=== PATIENT | male | born 1980 | race Caucasian/White ===

== ENCOUNTER 2017-08-21 02:36 | Emergency (ER) | payer BC, OTHER ==
[~2017-08-21] VITALS: Ht 175.3 cm; Wt 91.0 kg
[~2017-08-21 02:36] MED LIST: IBUP800T23 PO; METH500T3 PO
[2017-08-21 02:38] VITALS: BP 169/103; PULSE 68; RESP 16; TEMP 97.6; O2SAT 98
[2017-08-21 02:53] VITALS: BP 161/101; PULSE 71; RESP 20; O2SAT 99
--- NOTE | 2017-08-21 03:10 | PD ---
HPI Chief Complaint: Numbness/Tingling Time Seen by Provider: 02:44 Travel History International Travel<30 days: No Contact w/Intl Traveler<30days: No Traveled to known affect area: No History of Present Illness HPI The patient is a 36 year old male who presents to the [facility] emergency department with a history of reportedly noticing tingling sensations in his legs yesterday morning. He reports that the tingling sensations now involved his arms, face, and upper chest. He reports that he has chronic tingling sensations in the left leg associated with weakness in the left leg from history of sciatica. He initially thought that this may be related to his sciatica and took Naprosyn. The patient denies taking any other new medications. The patient denies any prior history of hypertension. His primary care physician is Dr. Chamberlain. He saw him a few months ago. He reports that he has had an episode where he felt dizzy related to this and also experienced nausea without vomiting. He reports having a sensation of weakness in his arms. He reports that 2 days ago he had diarrhea 3. On review of systems otherwise, the patient denies having any known recent fevers, cough or congestion, neck pain, chest pain, shortness of breath, abdominal pain, vomiting , urinary symptoms, loss of bowel or bladder control, double vision, new weakness in his legs, facial droop, or difficulty with word finding ability. He denies having any rashes, recent tick or insect bites, or exposures. [facility] Past Medical History Narrative Medical The patient's past medical history is significant for acid reflux, sciatica involving the left leg. Diminished Hearing: No Herniated Disk: Yes (S1) Tetanus Vaccination: Unknown Influenza Vaccination: No Past Surgical History Surgical History: No Previous Surgery Social History Alcohol Use: No Tobacco Use: No Substance Use: No Allergies-Medications (Allergen,Severity, Reaction): Coded Allergies: No Known Allergies (Unverified Adverse Reaction, Unknown, 08/21/17) Reported Meds & Prescriptions Reported Meds & Active Scripts Active Ibuprofen 800 Mg Tab 800 Mg PO Q6H PRN Robaxin (Methocarbamol) 500 Mg Tab 500 Mg PO QID PRN Review of Systems Except as stated in HPI: all other systems reviewed are Neg General / Constitutional: No: Fever Eyes: No: Visual changes HENT: Positive: Vertigo, No: Headaches Cardiovascular: No: Chest Pain or Discomfort Respiratory: No: Shortness of Breath Gastrointestinal: Positive: Nausea, Diarrhea, No: Abdominal Pain Genitourinary: No: Dysuria Musculoskeletal: No: Pain Skin: No Rash Neurologic: Positive: Weakness, Paresthesia, No: Focal Abnormalities, Change in Mentation, Slurred Speech, Sensory Disturbance Psychiatric: No: Depression Endocrine: No: Polydipsia Hematologic/Lymphatic: No: Easy Bruising Physical Exam Narrative General: The patient is a well-developed well-nourished male in no acute distress. The patient's blood pressure on arrival was noted to be elevated at 160/100. Head and Neck exam: Head is normocephalic atraumatic. Eyes: EOMI, pupils are equal round and reactive to light. Nose: Midline septum with pink mucous membranes Mouth: Dentition unremarkable. Moist mucus membranes. Posterior oropharynx is not erythematous. No tonsillar hypertrophy. Uvula midline. Airway patent. Neck: No palpable lymphadenopathy. No nuchal rigidity. No thyromegaly. No spinous process tenderness to palpation. No step-off or crepitus. No erythema or ecchymosis. Cardiovascular: Regular rate and rhythm without murmurs, gallops, or rubs. No pulse deficit to the extremities on simultaneous auscultation and palpation of his radial artery. Lungs: Clear to auscultation bilaterally. No wheezes, rhonchi, or rales. Abdomen: Soft, without tenderness to palpation in all 4 quadrants of the abdomen. No guarding, rebound, or rigidity. Normal bowel sounds are audible. No tenderness on palpation of McBurney's point. Extremities: No clubbing, cyanosis, or edema. 2+ pulses in all 4 extremities. No calf tenderness on palpation. Back: No spinous process tenderness to palpation. No step-off or crepitus. No erythema or ecchymosis. No costovertebral angle tenderness to palpation. Neurologic Exam: Cranial nerves 2-12 were intact on exam. Strength is 5/5 in all 4 extremities. The patient on sensory examination has intact sensation over all dermatomes. He reports having tingling sensations in the left leg which she reports is chronic related to sciatica. He reports having a tingling sensation across his upper chest. No other tingling sensations in his face or extremities otherwise at this time. 2+ deep tendon reflexes in bilateral lower extremities. Skin Exam: No rash noted. Intact skin that is warm and dry. Data Data Last Documented VS Vital Signs Date Time Temp Pulse Resp B/P (MAP) Pulse Ox O2 Delivery O2 Flow Rate FiO2 08/21/17 03:26 99.0 72 18 149/92 (111) 99 Room Air Orders Orders Electrocardiogram (08/21/17 02:55) Complete Blood Count With Diff (08/21/17 02:55) Comprehensive Metabolic Panel (08/21/17 02:55) Creatine Kinase (Cpk) (08/21/17 02:55) Ckmb (Isoenzyme) Profile (08/21/17 02:55) Troponin I (08/21/17 02:55) Lipase (08/21/17 02:55) Magnesium (Mg) (08/21/17 02:55) Thyroid Stimulating Hormone (08/21/17 02:55) Chest, Single Ap (08/21/17 02:55) Ct Brain W/O Iv Contrast(Rout) (08/21/17 02:55) Iv Access Insert/Monitor (08/21/17 02:55) Ecg Monitoring (08/21/17 02:55) Oximetry (08/21/17 02:55) Drug Screen, Random Urine (08/21/17 02:55) Alcohol (Ethanol) (08/21/17 02:55) Salicylates (Aspirin) (08/21/17 02:55) Tylenol (Acetaminophen) (08/21/17 02:55) Ct Cerv Spine W/O Contrast (08/21/17 ) Labs Laboratory Tests Test 08/21/17 02:55 08/21/17 03:00 White Blood Count 7.4 TH/MM3 Red Blood Count 5.60 MIL/MM3 Hemoglobin 15.5 GM/DL Hematocrit 44.8 % Mean Corpuscular Volume 80.0 FL Mean Corpuscular Hemoglobin 27.7 PG Mean Corpuscular Hemoglobin Concent 34.6 % Red Cell Distribution Width 13.4 % Platelet Count 216 TH/MM3 Mean Platelet Volume 7.5 FL Neutrophils (%) (Auto) 68.2 % Lymphocytes (%) (Auto) 24.3 % Monocytes (%) (Auto) 5.4 % Eosinophils (%) (Auto) 1.6 % Basophils (%) (Auto) 0.5 % Neutrophils # (Auto) 5.0 TH/MM3 Lymphocytes # (Auto) 1.8 TH/MM3 Monocytes # (Auto) 0.4 TH/MM3 Eosinophils # (Auto) 0.1 TH/MM3 Basophils # (Auto) 0.0 TH/MM3 CBC Comment DIFF FINAL Differential Comment Blood Urea Nitrogen 16 MG/DL Creatinine 1.02 MG/DL Random Glucose 138 MG/DL Total Protein 7.1 GM/DL Albumin 4.0 GM/DL Calcium Level 8.5 MG/DL Magnesium Level 1.9 MG/DL Alkaline Phosphatase 140 U/L Aspartate Amino Transf (AST/SGOT) 24 U/L Alanine Aminotransferase (ALT/SGPT) 37 U/L Total Bilirubin 0.3 MG/DL Sodium Level 143 MEQ/L Potassium Level 3.9 MEQ/L Chloride Level 110 MEQ/L Carbon Dioxide Level 26.0 MEQ/L Anion Gap 7 MEQ/L Estimat Glomerular Filtration Rate 83 ML/MIN Total Creatine Kinase 94 U/L Troponin I LESS THAN 0.02 NG/ML Lipase 183 U/L Thyroid Stimulating Hormone 3rd Gen 2.650 uIU/ML Salicylates Level LESS THAN 1.7 MG/DL Acetaminophen Level LESS THAN 2.0 MCG/ML Ethyl Alcohol Level LESS THAN 3 MG/DL Urine Opiates Screen NEG Urine Barbiturates Screen NEG Urine Amphetamines Screen NEG Urine Benzodiazepines Screen NEG Urine Cocaine Screen NEG Urine Cannabinoids Screen NEG MDM Medical Decision Making Medical Screen Exam Complete: Yes Emergency Medical Condition: Yes Medical Record Reviewed: Yes Differential Diagnosis Guillain-White syndrome, versus intracranial mass, versus stroke, versus neuropathy, versus electrolyte derangements, versus multiple sclerosis Narrative Course During the course of the patient's emergency department visit, the patient's history, examination, and differential diagnosis were reviewed with the patient. The patient was placed on a gambling monitor with oximetry and frequent blood pressure monitoring. The patient had IV access obtained and blood work sent for analysis. The patient had a EKG done on arrival. The patient's EKG reveals a sinus rhythm heart rate is 73, QRS duration is 153 ms, QTC 414 ms. The patient is noted to have a right bundle branch block on his EKG. The patient's laboratory studies were reviewed and remarkable for a CBC that is within normal limits, CMP is remarkable for chloride of 110, glucose 138, alk phos 140, cardiac enzymes within normal limits, lipase 183, TSH within normal limits, urine drug screen is negative, salicylate less than 1.7, acetaminophen less than 2, alcohol less than 3. Radiology studies were reviewed and remarkable for: Last Impressions Head CT 08/21/17 0255 Signed Impressions: Service Date/Time: Monday, August 21, 2017 03:13 - CONCLUSION: Normal examination. Guy Mcmahon Jr., MD Chest X-Ray 08/21/17 0255 Signed Impressions: Service Date/Time: Monday, August 21, 2017 03:07 - CONCLUSION: Normal examination. Guy Mcmahon Jr., MD Cervical Spine CT 08/21/17 0000 Signed Impressions: Service Date/Time: Monday, August 21, 2017 03:13 - CONCLUSION: 1. Mild C6-C7 degenerative disc disease. No central canal stenosis or neural impingement. 2. No acute abnormality. Guy Mcmahon Jr., MD The patient's results were discussed with him. The patient has no evidence of Guillain White exam as the patient has normal deep tendon reflexes and asymmetric paresthesias. The patient's symptoms are not consistent with stroke as the symptoms wax and wane in severity and are present bilaterally. The patient was instructed to follow-up with his primary care physician for consideration of additional testing. The patient was instructed to call his primary care physician regarding this emergency department visit to schedule an appointment for follow-up in the next 3 days. The patient is instructed that if he develops any new or worsening signs or symptoms, he should report back immediately to the emergency department for reevaluation. Diagnosis Primary Impression: Paresthesias Referrals: Raad Chamberlain MD 3 days Patient Instructions: General Instructions, Paresthesia (ED) Additional Instructions: The patient was instructed to follow-up with his primary care physician for consideration of additional testing. The patient was instructed to call his primary care physician regarding this emergency department visit to schedule an appointment for follow-up in the next 3 days. The patient is instructed that if he develops any new or worsening signs or symptoms, he should report back immediately to the emergency department for reevaluation. Med/Other Pt SpecificInfo: No Change to Meds Disposition: 01 DISCHARGE HOME Condition: Stable Mavis Seaman MD August 21, 2017 03:10
[2017-08-21 03:11] LABS: BASOPHIL % 0.5 % (0.0-2.0); EOSINOPHIL # 0.1 TH/MM3 (0-0.4); EOSINOPHIL % 1.6 % (0.0-4.0); HEMATOCRIT 44.8 % (39.0-51.0); HEMOGLOBIN 15.5 GM/DL (13.0-17.0); LYMPH % 24.3 % (9.0-44.0); LYMPHOCYTE # 1.8 TH/MM3 (1.0-4.8); MEAN CORPUSCULAR HEMOGLOBIN 27.7 PG (27.0-34.0); MEAN CORPUSCULAR HGB CONC 34.6 % (32.0-36.0); MEAN PLATELET VOLUME 7.5 FL (7.0-11.0); MONO % 5.4 % (0.0-8.0); MONOCYTE # 0.4 TH/MM3 (0-0.9); NEUT % 68.2 % (16.0-70.0); PLATELET COUNT 216 TH/MM3 (150-450); RED CELL DISTRIBUTION WIDTH 13.4 % (11.6-17.2); WHITE BLOOD COUNT 7.4 TH/MM3 (4.0-11.0)
[2017-08-21 03:12] VITALS: BP 161/101
[2017-08-21 03:26] VITALS: BP 149/92; PULSE 72; RESP 18; TEMP 99; O2SAT 99
--- NOTE | 2017-08-21 03:26 | RADRPT ---
EXAM DATE/TIME: 08/21/2017 03:07 [facility] COMPARISON: No previous studies available for comparison. INDICATIONS : Cough, numbness. MEDICAL HISTORY : None. SURGICAL HISTORY : None. ENCOUNTER: Initial ACUITY: 1 day PAIN SCORE: 0/10 LOCATION: Bilateral chest FINDINGS: A single view of the chest demonstrates the lungs to be symmetrically aerated without evidence of mas s, infiltrate or effusion. The cardiomediastinal contours are unremarkable. Osseous structures are intact. CONCLUSION: Normal examination. Guy Mcmahon Jr., MD on August 21, 2017 at 3:23 Board Certified Radiologist. This report was verified electronically.
--- NOTE | 2017-08-21 03:29 | RADRPT ---
EXAM DATE/TIME: 08/21/2017 03:13 [facility] COMPARISON: No previous studies available for comparison. INDICATIONS : Left sided pain; no injury. RADIATION DOSE: 56.35 CTDIvol (mGy) MEDICAL HISTORY : None SURGICAL HISTORY : None. ENCOUNTER: Initial ACUITY: 1 day PAIN SCALE: 5/10 LOCATION: cranial TECHNIQUE: Multiple contiguous axial images were obtained of the head. Using automated exposure control and adj ustment of the mA and/or kV according to patient size, radiation dose was kept as low as reasonably a chievable to obtain optimal diagnostic quality images. DICOM format image data is available electro nically for review and comparison. FINDINGS: CEREBRUM: The ventricles are normal for age. No evidence of midline shift, mass lesion, hemorrhage or acute in farction. No extra-axial fluid collections are seen. POSTERIOR FOSSA: The cerebellum and brainstem are intact. The 4th ventricle is midline. The cerebellopontine angle i s unremarkable. EXTRACRANIAL: The visualized portion of the orbits is intact. SKULL: The calvaria is intact. No evidence of skull fracture. CONCLUSION: Normal examination. Guy Mcmahon Jr., MD on August 21, 2017 at 3:26 Board Certified Radiologist. This report was verified electronically.
--- NOTE | 2017-08-21 03:31 | RADRPT ---
EXAM DATE/TIME: 08/21/2017 03:13 [facility] COMPARISON: No previous studies available for comparison. INDICATIONS : Left sided pain; no injury. RADIATION DOSE: 19.78 CTDIvol (mGy) MEDICAL HISTORY : None SURGICAL HISTORY : None. ENCOUNTER: Initial ACUITY: 1 day PAIN SCALE: 5/10 LOCATION: Left neck TECHNIQUE: Volumetric scanning of the cervical spine was performed. Multiplanar reconstructions in the sagittal, coronal and oblique axial planes were performed. Using automated exposure control and adjustment o f the mA and/or kV according to patient size, radiation dose was kept as low as reasonably achievable to obtain optimal diagnostic quality images. DICOM format image data is available electronically f or review and comparison. FINDINGS: VERTEBRAE: Normal vertebral body height. ALIGNMENT: No evidence of subluxation. C2-C3: The bony spinal canal is normal in size. No evidence of disc bulge or herniation. The neural forami na are bilaterally patent. C3-C4: The bony spinal canal is normal in size. No evidence of disc bulge or herniation. The neural forami na are bilaterally patent. C4-C5: The bony spinal canal is normal in size. No evidence of disc bulge or herniation. The neural forami na are bilaterally patent. C5-C6: The bony spinal canal is normal in size. No evidence of disc bulge or herniation. The neural forami na are bilaterally patent. C6-C7: A mild broad-based disc osteophyte complex eccentric to the left. No central canal stenosis. Neural f oramen are patent. C7-T1: The bony spinal canal is normal in size. No evidence of disc bulge or herniation. The neural forami na are bilaterally patent. CONCLUSION: 1. Mild C6-C7 degenerative disc disease. No central canal stenosis or neural impingement. 2. No acute abnormality. Guy Mcmahon Jr., MD on August 21, 2017 at 3:27 Board Certified Radiologist. This report was verified electronically.
[2017-08-21 03:39] LABS: ALT (GPT) 37 U/L (12-78); AST (GOT) 24 U/L (15-37); BLOOD UREA NITROGEN 16 MG/DL (7-18); CALCIUM 8.5 MG/DL (8.5-10.1); CHLORIDE 110 MEQ/L (98-107); CREATININE 1.02 MG/DL (0.60-1.30); GLOMERULAR FILTRATION RATE 83 ML/MIN (>89); GLUCOSE,RANDOM 138 MG/DL (74-106); MAGNESIUM 1.9 MG/DL (1.5-2.5); SODIUM (NA) 143 MEQ/L (136-145)
[2017-08-21 04:25] LABS: ALKALINE PHOSPHATASE 140 U/L (45-117); TOTAL BILIRUBIN ADULT 0.3 MG/DL (0.2-1.0); TOTAL PROTEIN 7.1 GM/DL (6.4-8.2); TROPONIN I LESS THAN 0.02 NG/ML (0.02-0.05)
[2017-08-21 04:26] LABS: ACETAMINOPHEN LESS THAN 2.0 MCG/ML (10.0-30.0)
[2017-08-21 05:10] VITALS: BP 137/86; TEMP 98.5
--- NOTE | 2017-08-21 22:21 | EKG ---
Date Performed: 08/21/2017 Time Performed: 02:50:19 PTAGE: 36 years EKG: Sinus rhythm WITH SINUS ARRHYTHMIA RIGHT BUNDLE BRANCH BLOCK ABNORMAL ECG NO PREVIOUS TRACING DOCTOR: Raul Bradshaw Interpretating Date/Time 08/21/2017 22:19:28
== END 2017-08-21 05:20 | disposition home or self-care (01) ==
LOC: NEPE 02:36
DX: R20.2 Paresthesia of skin (principal); I45.10 Unspecified right bundle-branch block; I49.8 Other specified cardiac arrhythmias; R03.0 Elevated blood-pressure reading, without diagnosis of hypertension; K21.9 Gastro-esophageal reflux disease without esophagitis; Z79.899 Other long term (current) drug therapy
CPT/HCPCS: 70450; 71045; 72125; 80053; 80307; 82550; 83690; 83735; 84443; 84484; 85025; 93005; 99285